=== PATIENT | male | born 1935 | race Caucasian/White ===

== ENCOUNTER 2016-09-09 16:11 | Emergency (ER) | payer MEDICARE ==
[2016-09-09 17:41] LABS: Hematocrit 49 % (42-52); Hemoglobin 16.3 g/dl (14.0-18.0); Mean Corpuscular HGB Conc 33 g/dl (31-36); Mean Corpuscular Hemoglobin 28 pg (27-31); Mean Corpuscular Volume 86 fL (80-94); Mean Platelet Volume 9 um3 (7.4-10.4); Red Blood Count 5.75 10^6/ul (4.0-5.4); Red Cell Distribution Width 15 % (10.5-15); White Blood Count 11.2 10^3/ul (3.5-10.8)
[2016-09-09 17:53] LABS: Albumin 3.9 g/dL (3.2-5.2); BUN/Creatinine Ratio 15.6 (8-20); C Reactive Protein 18.37 mg/L (< 5.00); Calcium 11.2 mg/dL (8.6-10.3); EGFR African American 69.5 (>60); EGFR Non-African American 54.1 (>60); Globulin 2.8 g/dL (2-4); Potassium 4.1 mmol/L (3.5-5.0); Total Bilirubin 0.9 mg/dL (0.2-1.0); Total Protein 6.7 g/dL (6.4-8.9)
[2016-09-09 18:43] LABS: Erythrocyte Sed Rate 10 mm/Hr (0-40)
[2016-09-09 18:53] VITALS: BP 149/127
--- NOTE | 2016-09-09 19:41 | RAD ---
HISTORY: Low back pain, history of kidney cancer COMPARISONS: CT dated January 02, 2015 TECHNIQUE: The following sequences were obtained of the lumbar spine: Sagittal and axial T1- and T2-weighted images, coronal T2-weighted images, and sagittal STIR images. FINDINGS: SPINAL CORD, CONUS, AND CAUDA EQUINA: The visualized spinal cord, conus, and cauda equina are normal in caliber, position, and signal intensity. ALIGNMENT: The alignment is normal. VERTEBRAL BODIES: There is multilevel anterolateral marginal osteophyte formation. There are Modic type I reactive end plate changes at L4-L5. There are Modic type II changes at L2-L3. There is a Schmorl's node along the inferior endplate of T11. JOINTS: There is diffuse facet osteoarthritic change MUSCULATURE: There is mild fatty infiltration INTERVERTEBRAL DISCS: There is diffuse loss of intervertebral disc height and T2 signal throughout the spine. AXIAL IMAGES: T11-T12: There is no significant neural foraminal narrowing or central canal stenosis. T12-L1: There is no disc herniation, spinal stenosis, or neuroforaminal narrowing. L1-L2: There is mild disc bulge. There is no significant neural foraminal narrowing or central canal stenosis. L2-L3: There is mild disc bulge. There is bilateral facet hypertrophy with marginal osteophyte formation at the neural foramina bilaterally. There is mild bilateral neural foraminal narrowing. There is mild narrowing of the central canal. L3-L4: There is a broad-based disc bulge. There is bilateral facet hypertrophy, with marginal osteophyte formation at the neural foramina bilaterally. There is moderate bilateral neural foraminal narrowing. There is mild narrowing of the central canal. L4-L5: There is broad-based disc bulge. There is ligamentous and facet hypertrophy. There is marginal osteophyte formation at the neural, bilaterally. There is severe right and moderate left neuroforaminal narrowing. There is moderate narrowing of the central canal. L5-S1: There is broad-based disc bulge. There is bilateral facet hypertrophy. There is marginal osteophyte formation at the neural foramina bilaterally. There is severe bilateral neural foraminal narrowing. There is mild narrowing of the central canal SOFT TISSUES: Multiple renal cysts are noted. Again noted is a left adrenal nodule, incompletely visualized on the current examination, corresponding to the previous CT finding. OTHER: Small Tarlov cysts are noted opposite of S2 IMPRESSION: 1. DEGENERATIVE DISC DISEASE AND OSTEOARTHRITIS. 2. THERE IS MULTILEVEL NEURAL FORAMINAL NARROWING DESCRIBED ABOVE. 3. THERE IS MODERATE NARROWING OF THE CENTRAL CANAL AT L4-L5 WITH MILD NARROWING AT L2-L3, L3-L4, AND L5-S1. 4. THERE ARE NO FINDINGS TO SUGGEST METASTATIC DISEASE TO THE VISUALIZED SPINE, THOUGH EVALUATION IS LIMITED BY THE LACK OF INTRAVENOUS CONTRAST.
[2016-09-09] MEDS ORDERED: HYDROcodone/ACETAMIN 5-325 MG* 1 TAB PO ONE ×2 (20:38→20:58)
--- NOTE | 2016-09-10 12:49 | ED ---
renata Frances Timothy, scribed for Dwain Briscoe MD on 09/09/16 at 1715 . Back Pain - HPI Summary HPI Summary: Kirby Higgins is an 81 yo male presenting to [facility] with 7/10 lower back pain for the past 2 days, worse through last night. Pt denies any trauma but states he has been incontinent of urine and stool while sleeping last night. He states the pain is worse with movement. He has no other complaints, and denies any weakness in his lower extremities. His Mx includes HLD, HTN, TIA, renal disease , enlarged prostate and tobacco use. - History of Current Complaint Chief Complaint: EDBackInjuryPain Stated Complaint: LOW BACK PAIN Time Seen by Provider: 09/09/16 16:15 Hx Obtained From: Patient Onset/Duration: Sudden Onset, Lasting Days, Still Present Onset/Duration: Started Days Ago, Still Present Timing: Constant Severity Initially: Moderate Severity Currently: Moderate Pain Intensity: 7 Pain Scale Used: 0-10 Numeric Aggravating Symptom(s): Movement Associated Signs And Symptoms: Positive: Bladder Incontinence - when asleep, Bowel Incontinence - when asleep - Allergies/Home Medications Allergies/Adverse Reactions: Allergies Allergy/AdvReac Type Severity Reaction Status Date / Time No Known Allergies Allergy Verified 09/09/16 16:20 PMH/Surg Hx/FS Hx/Imm Hx Endocrine/Hematology History: Denies: Hx Diabetes, Hx Systemic Lupus Erythematosus Cardiovascular History: Reports: Hx Hypercholesterolemia Denies: Hx Congestive Heart Failure, Hx Hypertension, Hx Pacemaker/ICD History: Reports: Hx Renal Disease - states has kidney ca but will not have surgery, Other Problems/Disorders - enlarged prostate Denies: Hx Dialysis Musculoskeletal History: Denies: Hx Rheumatoid Arthritis Sensory History: Reports: Hx Hearing Aid Neurological History: Reports: Other Neuro Impairments/Disorders - TIA Psychiatric History: Denies: Hx Panic Disorder - Cancer History Cancer Type, Location and Year: KIDNEY CA, 2010(?) Hx Chemotherapy: No - Surgical History Surgery Procedure, Year, and Place: cholecystectomy, surgery to prostate, [facility] for kidney stones Infectious Disease History: No Infectious Disease History: Denies: Traveled Outside the [place] in Last 30 Days - Family History Known Family History: Positive: Cardiac Disease, Hypertension Negative: Diabetes - Social History Alcohol Use: None Substance Use Type: Reports: None Smoking Status (MU): Former Smoker Review of Systems Constitutional: Negative Eyes: Negative ENT: Negative Cardiovascular: Negative Respiratory: Negative Gastrointestinal: Other - bladder/bowel incontinence when asleep Genitourinary: Negative Musculoskeletal: Other - back pain Skin: Negative Neurological: Negative Psychological: Normal All Other Systems Reviewed And Are Negative: Yes Physical Exam Triage Information Reviewed: Yes Vital Signs On Initial Exam: Initial Vitals Temp Pulse Resp BP Pulse Ox 97.9 F 68 16 177/88 96 09/09/16 16:20 09/09/16 16:20 09/09/16 16:20 09/09/16 16:20 09/09/16 16:20 Vital Signs Reviewed: Yes Appearance: Positive: Well-Appearing, No Pain Distress, Well-Nourished Skin: Positive: Warm, Skin Color Reflects Adequate Perfusion, Dry Head/Face: Positive: Normal Head/Face Inspection Eyes: Positive: Normal ENT: Positive: Normal ENT inspection Neck: Positive: Supple, Nontender Respiratory/Lung Sounds: Positive: Clear to Auscultation, Breath Sounds Present Cardiovascular: Positive: RRR Abdomen Description: Positive: Nontender, Soft Bowel Sounds: Positive: Present Musculoskeletal: Positive: Normal Neurological: Positive: Normal Psychiatric: Positive: Normal, Affect/Mood Appropriate - Panchito Coma Scale Coma Scale Total: 15 Diagnostics - Vital Signs Vital Signs Temp Pulse Resp BP Pulse Ox 09/09/16 16:20 97.9 F 68 16 177/88 96 - Laboratory Lab Results: Lab Results 09/09/16 09/09/16 Range/Units 17:10 17:10 WBC 11.2 H (3.5-10.8) 10^3/ul RBC 5.75 H (4.0-5.4) 10^6/ul Hgb 16.3 (14.0-18.0) g/dl Hct 49 (42-52) % MCV 86 (80-94) fL MCH 28 (27-31) pg MCHC 33 (31-36) g/dl RDW 15 (10.5-15) % Plt Count 160 (150-450) 10^3/ul MPV 9 (7.4-10.4) um3 Neut % (Auto) 76.6 (38-83) % Lymph % (Auto) 14.4 L (25-47) % Swain % (Auto) 7.7 (1-9) % Eos % (Auto) 1.0 (0-6) % Baso % (Auto) 0.3 (0-2) % Absolute Neuts (auto) 8.6 H (1.5-7.7) 10^3/ul Absolute Lymphs (auto) 1.6 (1.0-4.8) 10^3/ul Absolute Monos (auto) 0.9 H (0-0.8) 10^3/ul Absolute Eos (auto) 0.1 (0-0.6) 10^3/ul Absolute Basos (auto) 0 (0-0.2) 10^3/ul Absolute Nucleated RBC 0.01 10^3/ul Nucleated RBC % 0.1 ESR 10 (0-40) mm/Hr Sodium 135 (133-145) mmol/L Potassium 4.1 (3.5-5.0) mmol/L Chloride 106 (101-111) mmol/L Carbon Dioxide 25 (22-32) mmol/L Anion Gap 4 (2-11) mmol/L BUN 20 (6-24) mg/dL Creatinine 1.28 H (0.67-1.17) mg/dL Est GFR ( Amer) 69.5 (>60) Est GFR (Non-Af Amer) 54.1 (>60) BUN/Creatinine Ratio 15.6 (8-20) Glucose 89 (70-100) mg/dL Calcium 11.2 H (8.6-10.3) mg/dL Total Bilirubin 0.90 (0.2-1.0) mg/dL AST 14 (13-39) U/L ALT 12 (7-52) U/L Alkaline Phosphatase 155 H (34-104) U/L C-Reactive Protein 18.37 H (< 5.00) mg/L Total Protein 6.7 (6.4-8.9) g/dL Albumin 3.9 (3.2-5.2) g/dL Globulin 2.8 (2-4) g/dL Albumin/Globulin Ratio 1.4 (1-3) Result Diagrams: 09/09/16 17:10 09/09/16 17:10 Lab Statement: Any lab studies that have been ordered have been reviewed, and results considered in the medical decision making process. - Radiology Lumbar MRI Xray Interpretation: No Acute Changes - IMPRESSION: 1. DEGENERATIVE DISC DISEASE AND OSTEOARTHRITIS. 2. THERE IS MULTILEVEL NEURAL FORAMINAL NARROWING DESCRIBED ABOVE. 3. THERE IS MODERATE NARROWING OF THE CENTRAL CANAL AT L4- L5 WITH MILD NARROWING AT L2-L3, L3-L4, AND L5-S1. 4. THERE ARE NO FINDINGS TO SUGGEST METASTATIC DISEASE TO THE VISUALIZED SPINE, THOUGH EVALUATION IS LIMITED BY THE LACK OF INTRAVENOUS CONTRAST. Radiology Interpretation Completed By: Radiologist Re-Evaluation - Re-Evaluation First Eval Re-Evaluation Time: 20:10 Change: Unchanged Comment: Reviewed MRI and lab studies with Pt, informed Pt that we were awaiting consult with Dr. Elizabeth. Second Eval Re-Evaluation Time: 20:36 Change: Unchanged Comment: Discussed Dr. Elizabeth's recommendation. Pt is agreeable to be discharged. Back Pain Course/Dx - Course Assessment/Plan: Kirby Higgins is an 81 yo male presenting to [facility] with 7/10 back pain for the past 2 days, with bowel/bladder incontinence noted while sleeping last night. He declines any pain medication at this time. Pt medication list reviewed this visit. His lumbar MRI suggests: IMPRESSION: 1. DEGENERATIVE DISC DISEASE AND OSTEOARTHRITIS. 2. THERE IS MULTILEVEL NEURAL FORAMINAL NARROWING DESCRIBED ABOVE. 3. THERE IS MODERATE NARROWING OF THE CENTRAL CANAL AT L4-L5 WITH MILD NARROWING AT. L2-L3, L3-L4, AND L5-S1. 4. THERE ARE NO FINDINGS TO SUGGEST METASTATIC DISEASE TO THE VISUALIZED SPINE, THOUGH. EVALUATION IS LIMITED BY THE LACK OF INTRAVENOUS CONTRAST. After clinical examination and review of his imaging and studies, as well as discussion with Dr. Elizabeth, he will be discharged home with low back pain with appropriate instructions. - Diagnoses Differential Diagnosis/HQI/PQRI: Positive: Other - low back pain Provider Diagnoses: Low back pain - Provider Notifications Discussed Care Of Patient With: Tashi Elizabeth - Discussed Pt condition, recommends d/c Time Discussed With Above Provider: 20:34 Discharge - Discharge Plan Condition: Stable Disposition: HOME Prescriptions: HYDROcodone/ACETAMIN 5-325 MG* [Browning 5-325 TAB*] 1 tab PO Q6H PRN #20 tab MDD 4 PRN Reason: Pain Patient Education Materials: Acute Low Back Pain (ED) Referrals: Emilia Hilario MD [Primary Care Provider] - 2 Days Additional Instructions: Please follow up with your primary care physician regarding your visit to the emergency department today. Return to the emergency department with any new or recurring symptoms. The documentation as recorded by the renata craig Timothy accurately reflects the service I personally performed and the decisions made by me, Dwain Briscoe MD.
== END 2016-09-09 21:08 | disposition home or self-care (01) ==
LOC: ED 16:11
DX: M51.36 Other intervertebral disc degeneration, lumbar region (principal); M54.5 Low back pain; Z87.891 Personal history of nicotine dependence
CPT/HCPCS: 36415; 72148; 80053; 85025; 85652; 86140; 99283

== ENCOUNTER 2020-11-13 12:07 | Inpatient (IN) ==
[2020-11-13 15:43] LABS: Hematocrit 48 % (42-52); Hemoglobin 16.6 g/dL (14.0-18.0); Mean Corpuscular HGB Conc 34 g/dL (31-36); Mean Corpuscular Hemoglobin 30 pg (27-31); Mean Corpuscular Volume 87 fL (80-94); Mean Platelet Volume 8.7 fL (7.4-10.4); Platelet Count 133 10^3/uL (150-450); Red Blood Count 5.55 10^6 /uL (4.18-5.48); Red Cell Distribution Width 15 % (10-15); White Blood Count 7.8 10^3/uL (3.5-10.8)
[2020-11-13 15:49] LABS: Urine Appearance Clear; Urine Bilirubin Negative (Negative); Urine Blood 1+ (Negative); Urine Color Yellow; Urine Glucose Negative (Negative); Urine Ketones Negative (Negative); Urine Nitrite Negative (Negative); Urine Protein 1+(30 mg/dL) (Negative); Urine Specific Gravity 1.015 (1.002-1.030); Urine Urobilinogen Negative (Negative)
[2020-11-13 15:52] LABS: Urine Bacteria Absent (Absent); Urine Red Blood Cell 1+(3-5/hpf) (Absent); Urine Squamous Epithelial Cell Present (Absent); Urine White Blood Cell 1+(6-10/hpf) (Absent)
[2020-11-13 16:04] LABS: Anion Gap 7 mmol/L (2-11); Blood Urea Nitrogen 28 mg/dL (6-24); CO2 Carbon Dioxide 25 mmol/L (22-32); Calcium 11.2 mg/dL (8.6-10.3); Chloride 104 mmol/L (101-111); EGFR African American 55.2 (>60); EGFR Non-African American 45.6 (>60); Glucose 109 mg/dL (70-100); Potassium 3.8 mmol/L (3.5-5.0); Sodium 136 mmol/L (135-145)
[2020-11-13 16:09] LABS: Troponin I 0.14 ng/mL (<0.03)
[2020-11-13 19:10] LABS: Troponin I 0.16 ng/mL (<0.03)
[2020-11-13 23:25] LABS: Troponin I 0.15 ng/mL (<0.03)
[2020-11-14] MEDS: Nicotine PATCH 7 MG/24 HR PATCH TRANSDERM SCH ×2 (02:23→09:45)
[2020-11-14 16:01] LABS: ABS Basophils 0.1 10^3/ul (0-0.2); ABS Eosinophils 0.3 10^3/ul (0-0.6); ABS Lymphocytes 1.8 10^3/ul (1.0-4.8); ABS Neutrophils 5.2 10^3/ul (1.5-7.7); Eosinophil % 3.1 %; Hematocrit 49 % (42-52); Hemoglobin 16.9 g/dL (14.0-18.0); Lymphocyte % 21.7 %; Mean Corpuscular HGB Conc 34 g/dL (31-36); Mean Corpuscular Hemoglobin 30 pg (27-31); Mean Corpuscular Volume 87 fL (80-94); Mean Platelet Volume 8.9 fL (7.4-10.4); Nucleated Red Blood Cells % 0.1; Platelet Count 138 10^3/uL (150-450); Red Blood Count 5.67 10^6 /uL (4.18-5.48); Red Cell Distribution Width 14 % (10-15); White Blood Count 8.3 10^3/uL (3.5-10.8)
[2020-11-14 17:14] LABS: Calcium 11.6 mg/dL (8.6-10.3); EGFR African American 59.4 (>60); EGFR Non-African American 49.1 (>60); Potassium 4.1 mmol/L (3.5-5.0)
[2020-11-15] MEDS: Nicotine PATCH 7 MG/24 HR PATCH TRANSDERM SCH (10:18)
[2020-11-16] MEDS: Nicotine PATCH 7 MG/24 HR PATCH TRANSDERM SCH (09:14)
[2020-11-17] MEDS ORDERED: Haloperidol 5 mg/ml SDV IV/IM 5 MG/ML AMP IM PRN (08:25)
[2020-11-17] MEDS: Nicotine PATCH 7 MG/24 HR PATCH TRANSDERM SCH (08:52)
[2020-11-18 07:26] VITALS: BP 129/84
[2020-11-18] MEDS: Nicotine PATCH 7 MG/24 HR PATCH TRANSDERM SCH (07:37)
== END 2020-11-18 11:00 | disposition home or self-care (01) | DRG 884 ==
LOC: ED 12:07 → SUATTDRO 22:12 → MEDTELE 22:12
PROVIDERS: ADMIT Internal Medicine; ATTEND Hospitalist

== ENCOUNTER 2021-05-12 12:21 | Inpatient (IN) ==
[2021-05-12 13:56] LABS: PCO2 Arterial 25 mmHg (35-45); PO2 Arterial 73 mmHg (80-100)
[2021-05-12 15:00] LABS: ABS Lymphocytes 0.7 10^3/ul (1.0-4.8); ABS Monocytes 1.5 10^3/ul (0-0.8); ABS Neutrophils 15.2 10^3/ul (1.5-7.7); Hematocrit 51 % (42-52); Hemoglobin 16.6 g/dL (14.0-18.0); Lymphocyte % 3.9 %; Mean Corpuscular HGB Conc 33 g/dL (31-36); Mean Corpuscular Hemoglobin 29 pg (27-31); Mean Corpuscular Volume 88 fL (80-94); Mean Platelet Volume 9.9 fL (7.4-10.4); Platelet Count 101 10^3/uL (150-450); Red Blood Count 5.78 10^6 /uL (4.18-5.48); Red Cell Distribution Width 16 % (10-15); White Blood Count 17.4 10^3/uL (3.5-10.8)
[2021-05-12 15:08] LABS: Activated Partial Thrombo Time 27.7 seconds (26.0-38.0); Albumin 3.9 g/dL (3.2-5.2); Calcium 11.8 mg/dL (8.6-10.3); Chloride 101 mmol/L (101-111); INR 1.57 (0.86-1.15); Sodium 131 mmol/L (135-145)
[2021-05-12 15:14] LABS: ALT 375 U/L (7-52); AST 345 U/L (13-39); Albumin/Globulin Ratio 1.4 (1-3); Alkaline Phosphatase 151 U/L (35-149); Blood Urea Nitrogen 99 mg/dL (6-24); Globulin 2.8 g/dL (2-4); Glucose 85 mg/dL (70-100); Total Protein 6.7 g/dL (6.4-8.9)
[2021-05-12] MEDS ORDERED: CALCIUM GLUCONATE 1GM/50ML NS 1 GM/50 ML BAG IV ONE (15:15)
[2021-05-12 15:20] LABS: Potassium 5.3 mmol/L (3.5-5.0)
[2021-05-12 15:24] LABS: Anion Gap 16 mmol/L (2-11); CO2 Carbon Dioxide 14 mmol/L (22-32); Troponin I > 80.00 ng/mL (<0.03)
[2021-05-12] MEDS ORDERED: Heparin - STEMI 5,000 UNITS/ML 1 ml VIAL IV ONE (15:26)
[2021-05-12] MEDS ORDERED: fentaNYL 100 mcg/2 ml 50 MCG/ML VIAL ONE (15:29)
[2021-05-12] MEDS ORDERED: Midazolam 5 mg/5 ml VIAL 1 mg/ml 5 ml VIAL (5 mg) ONE (15:29)
[2021-05-12] MEDS ORDERED: VERAPAMIL 2.5 MG/ML 2 ML VIAL ** 5 mg/2 ml ONE (15:29)
[2021-05-12] MEDS ORDERED: Heparin 1,000 UNIT/ML 10 ml (10,000 UNITS) CATHLAB/DIALYSIS ONE (15:29)
[2021-05-12] MEDS ORDERED: Iohexol 350 (CONTRAST) 200 ML MDV IV ONE (15:30)
[2021-05-12] MEDS ORDERED: nitroGLYCERIN DRIP 25,000 MCG/250 ML BTL ONE (15:30)
[2021-05-12] MEDS ORDERED: Lidocaine 1% VIAL 10 MG/ML VIAL ONE (15:30)
[2021-05-12] MEDS ORDERED: Heparin 2 UNITS/ML 1000 mls 2,000 ML IV ONE (15:30)
[2021-05-12] MEDS ORDERED: Iodixanol 320 (CONTRAST) 100 ML SDV ONE ×4 (15:38→16:43)
[2021-05-12 16:22] LABS: BNP > 1300 pg/mL (<=100)
[2021-05-12] MEDS ORDERED: Heparin 2 UNITS/ML 1000 mls 1,000 ML IV ONE ×2 (16:29→16:57)
[2021-05-12 16:32] LABS: Ammonia 43 mcmol/L (16-53)
[2021-05-12 16:38] LABS: Troponin I > 80.00 ng/mL (<0.03)
[2021-05-12] MEDS ORDERED: Furosemide 40 mg/4 ml IV VIAL ONE (16:44)
[2021-05-12] MEDS ORDERED: Midazolam 2 mg/2 ml VIAL 1 mg/ml 2 ml VIAL (2 mg) IV SLOW PU ONE (17:29)
[2021-05-12] MEDS ORDERED: Heparin DRIP 25,000 UNITS BAG 25,000 UNITS/500 ML BAG IV SCH (17:30)
[2021-05-12] MEDS ORDERED: Heparin 5000 UNITS/ML 1 mL VIAL IV SCH (18:00)
[2021-05-12] MEDS ORDERED: Heparin 5000 UNITS/ML 1 mL VIAL ONE (18:01)
[2021-05-12] MEDS ORDERED: Heparin DRIP 25,000 UNITS BAG 25,000 UNITS/500 ML BAG ONE (18:02)
[2021-05-12] MEDS ORDERED: Etomidate 40 mg/20 ml (2 MG/ML) 20 ml VIAL (40 mg) ONE ×2 (18:04→18:09)
[2021-05-12] MEDS ORDERED: Propofol 10 MG/ML 20 ML BTL ONE (18:09)
[2021-05-12] MEDS ORDERED: Succinylcholine 200 mg VIAL 20 mg/ml 10 ml VIAL (200 mg) ONE (18:12)
[2021-05-12] MEDS ORDERED: Lorazepam PYXIS KEY PRN (19:05)
[2021-05-12] MEDS ORDERED: LORazepam 2 mg VIAL 1 ml IV PUSH PRN (19:05)
[2021-05-12 19:07] LABS: ABS Basophils 0.1 10^3/ul (0-0.2); ABS Lymphocytes 0.7 10^3/ul (1.0-4.8); ABS Monocytes 1.4 10^3/ul (0-0.8); ABS Neutrophils 15.6 10^3/ul (1.5-7.7); Hematocrit 48 % (42-52); Hemoglobin 15.5 g/dL (14.0-18.0); Lymphocyte % 3.8 %; Mean Corpuscular HGB Conc 33 g/dL (31-36); Mean Corpuscular Hemoglobin 29 pg (27-31); Mean Corpuscular Volume 87 fL (80-94); Mean Platelet Volume 11.1 fL (7.4-10.4); Platelet Count 125 10^3/uL (150-450); Red Blood Count 5.45 10^6 /uL (4.18-5.48); Red Cell Distribution Width 16 % (10-15); White Blood Count 17.8 10^3/uL (3.5-10.8)
[2021-05-12 19:25] LABS: ALT 345 U/L (7-52); AST 291 U/L (13-39); Albumin 3.6 g/dL (3.2-5.2); Albumin/Globulin Ratio 1.4 (1-3); Alkaline Phosphatase 133 U/L (35-149); Anion Gap 12 mmol/L (2-11); Blood Urea Nitrogen 101 mg/dL (6-24); CO2 Carbon Dioxide 18 mmol/L (22-32); Calcium 11.1 mg/dL (8.6-10.3); Chloride 103 mmol/L (101-111); Globulin 2.5 g/dL (2-4); Glucose 97 mg/dL (70-100); Potassium 4.5 mmol/L (3.5-5.0); Sodium 133 mmol/L (135-145); Total Protein 6.1 g/dL (6.4-8.9); eGFR CKD-EPI 19.3 (>60)
[2021-05-12 19:28] LABS: Troponin I > 80.00 ng/mL (<0.03)
[2021-05-12] MEDS ORDERED: cefTRIAXone 1 gm/50 mL NS BAG 1 GM/50 ML BAG IVPB SCH (20:00)
[2021-05-12] MEDS ORDERED: Midazolam 50 MG VIAL IV DRIP 50 ML IV SCH (21:00)
[2021-05-12] MEDS ORDERED: NORMOSOL-R pH 7.4 1000 mL BAG 1,000 ML IV SCH (22:00)
[2021-05-12 22:08] LABS: PCO2 Arterial 37 mmHg (35-45); PO2 Arterial 251 mmHg (80-100)
[2021-05-12 23:27] VITALS: BP 94/71
== END 2021-05-12 22:51 | disposition short-term general hospital (02) | DRG 280 ==
LOC: ED 12:21 → CHICATH 15:33 → ICU 17:18